=== PATIENT | male | born 1980 | race Asian ===

== ENCOUNTER 2023-02-19 16:45 | Emergency (ER) | payer MEDICAID, OTHER ==
[~2023-02-19] VITALS: Ht 170.2 cm; Wt 72.7 kg
[2023-02-19] MEDS ORDERED: FLUORESCEIN SODIUM 1 MG STRIP OD ONE (17:45)
[2023-02-19] MEDS ORDERED: MOXI3DRO27 OD (18:50)
[2023-02-19 18:54] VITALS: BP 122/85
== END 2023-02-19 18:58 | disposition home or self-care (01) ==
LOC: EMS 16:49
DX: H10.9 Unspecified conjunctivitis (principal); Z87.891 Personal history of nicotine dependence
CPT/HCPCS: 99283